=== PATIENT | female | born 1975 | race Two or more races ===

== ENCOUNTER 2022-11-24 06:01 | Day surgery (SDC) | payer OTHER ==
[2022-11-18 14:51] VITALS: BMI 31.8
[2022-11-24] MEDS ORDERED: SCOPOLAMINE HYDROBROMIDE 1 PATCH PATCH.TD72 ONE (07:14)
[2022-11-24] MEDS ORDERED: BUPIVACAINE HCL/EPINEPHRINE/PF 30 ML VIAL IJ ONE (07:15)
[2022-11-24] MEDS ORDERED: ONDANSETRON 4 MG/2 ML VIAL ONE ×2 (07:16→08:16)
[2022-11-24] MEDS ORDERED: DEXAMETHASONE SOD PHOSPHATE 4 MG/1 ML VIAL ONE ×2 (07:16→08:16)
[2022-11-24] MEDS ORDERED: MIDAZOLAM HCL 2 MG/2 ML SINGLE DOSE VIAL ONE (07:17)
[2022-11-24] MEDS ORDERED: SUCCINYLCHOLINE CHLORIDE 200 MG/10 ML SYRINGE ONE (07:17)
[2022-11-24] MEDS ORDERED: PROPOFOL 40 ML ONE (07:17)
[2022-11-24] MEDS ORDERED: ceFAZolin SODIUM 1 GM VIAL ONE (07:42)
[2022-11-24] MEDS ORDERED: PROPOFOL 20 ML ONE (08:12)
[2022-11-24] MEDS ORDERED: KETOROLAC TROMETHAMINE 30 MG/1 ML VIAL ONE (08:16)
[2022-11-24] MEDS ORDERED: ONDANSETRON 4 MG/2 ML VIAL IVPUSH PRN (08:30)
[2022-11-24] MEDS ORDERED: LACTATED RINGERS SOLUTION 1,000 ML IV SCH (08:30)
[2022-11-24] MEDS ORDERED: oxyCODONE HCL 5 MG TABLET PO PRN ×2 (08:30)
[2022-11-24] MEDS ORDERED: FENTANYL CITRATE/PF 50 MCG/ML VIAL ONE ×2 (08:39→08:58)
[2022-11-24] MEDS ORDERED: ACETAMINOPHEN 1000 MG/100 ML BAG IVPB ONE (08:45)
[2022-11-24] MEDS ORDERED: oxyCODONE HCL 5 MG TABLET ONE (09:54)
[2022-11-24 10:00] VITALS: PULSE 60; RESP 18; TEMP 97.1
[2022-11-24 10:32] VITALS: BP 139/72
== END 2022-11-24 10:35 | disposition home or self-care (01) ==
LOC: FASU 06:01
PROVIDERS: ATTEND Orthopaedic Surgery
PROC: 0SQC4ZZ Repair Right Knee Joint, Percutaneous Endoscopic Approach (ICD-10-PCS; principal; 2022-11-24 07:56)
DX: S83.241A Other tear of medial meniscus, current injury, right knee, initial encounter (principal); M17.11 Unilateral primary osteoarthritis, right knee
CPT/HCPCS: 94760; C1713